=== PATIENT | male | born 1955 | race Caucasian/White ===

== ENCOUNTER → 2019-06-13 | Outpatient (REF) | payer MEDICARE, BC ==
[2019-06-13 15:15] LABS: PLATELET COUNT, AUTOMATED 265 10^3/uL (150-450)
[2019-06-13 15:17] LABS: BLOOD UREA NITROGEN 13 MG/DL (7-18); CREATININE FOR GFR 1.16 MG/DL (0.70-1.30); GLOMERULAR FILTRATION RATE > 60.0 (>49)
[2019-06-13 15:27] LABS: PROTHROMBIN TIME 12.9 SECONDS (11.8-14.0)
[2019-06-13 15:28] LABS: PARTIAL THROMBOPLASTIN TIME 27.1 SECONDS (25.0-38.4)
== END ==
LOC: M LABDRAW1 11:19
PROVIDERS: ATTEND Physician Assistant
DX: Z01.812 Encounter for preprocedural laboratory examination (principal); M47.26 Other spondylosis with radiculopathy, lumbar region